=== PATIENT | female | born 1995 | race Caucasian/White ===

== ENCOUNTER 2025-06-22 18:21 | Emergency (ER) | payer MEDICAID, SELFPAY ==
[2025-06-22 18:26] VITALS: BP 122/80; PULSE 87; RESP 18; TEMP 36.8; O2SAT 99
[2025-06-22 18:27] VITALS: BMI 33.8
[2025-06-22 18:33] VITALS: PULSE 98; RESP 16; O2SAT 99
--- NOTE | 2025-06-22 19:37 | XR_ITS ---
Examination: CT brain head without contrast. 2-D sagittal coronal reconstructions Date and time of exam: June 22, 2025, 2021 hours INDICATION: Headache dizziness today CTDI: vol (mGy): 49.9 DLP: (mGycm): 975 Technique: Multiple CT axial sections of the brain have been obtained, 5 mm slice thickness. Contrast has not been administered. 2-D sagittal, coronal reconstructions have been obtained Low dose protocols were performed. One or more of the following dose reduction techniques were used; automated exposure control, adjustment of the mA and/or KV according to patient size, use of iterative reconstruction technique. Findings: No significant ventricular enlargement. Intra-axial or extra-axial hemorrhage density is not seen. No mass effect or midline shift Basal cisterns are not remarkable. Fourth ventricle is midline. Cranial vault intact. Impression: Negative for acute hemorrhage, mass effect or midline shift Advise clinical correlation and follow-up accordingly
--- NOTE | 2025-06-22 19:40 | EKG_ITS ---
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
--- NOTE | 2025-06-22 20:16 | EDNOTE_ITS ---
ED Syncope RME/HPI General Chief Complaint: Syncope / Near Syncope Stated Complaint: SYNCOPE Time Seen by Provider: 06/22/25 19:34 Arrival date/time: 06/22/25 18:21 RME / HPI RME / HPI narrative: 29-year-old healthy female presents to the ER for an episode of feeling warm and lightheaded while cooking in the kitchen about 2 hours prior to arrival and she subsequently sat down and lost consciousness. This was witnessed by her boyfriend who states that she was shaking for about 30 seconds. Patient came to right after and felt normal. Denies chest pain, shortness of breath, nausea vomiting, fever, head injury, LOC, tongue biting, urinary incontinence. Related Data Previous Rx's ?Medication ?Instructions ?Recorded ibuprofen 600 mg tablet 600 mg PO Q8H PRN pain #30 t abs 06/22/21 labetalol 100 mg tablet 100 mg PO BID #60 tabs 06/22 oxycodone-acetaminophen 5 mg-325 1 tab PO Q8H PRN pain #20 tabs 06/22/21 mg tablet (Percocet) nifedipine 30 mg tablet,extended 30 mg PO QDAY #30 tab s 06/23/21 release 24 hr (Procardia XL) Allergies Allergy/AdvReac Type Severity Reaction Status Date / Time No Known Allergies Allergy Verified 02/07/21 16:18 Course Quality Measures none Orders Category Date Time Status EKG (ED ONLY) *Do not use* NOW Care 06/22/25 19:40 Completed Orthostatic Vitals NOW Care 06/22/25 20:[address] head/brain wo con Stat Exams 06/22/25 19:37 Completed EKG (ED Only) Stat Exams 06/22/25 19:40 Draft CBC Stat Lab 06/22/25 20:39 Completed CMP [Comprehensive Metabolic Panel] Stat Lab 06/22/25 20:39 Completed Drug Screen,Urine Stat Lab 06/22/25 20:24 Completed HCG,Qualitative Serum Stat Lab 06/22/25 20:39 Completed Troponin I Stat Lab 06/22/25 20:39 Completed UA, C/S IF [Urinalysis, C/S if Indicated] Stat Lab 06/22/25 20:24 Completed Sodium Chloride 0.9% 1000 ml [Ns] 1,000 ml Med 06/22/25 20:42 Discontinued IV 999 mls/hr Vital Signs Vital signs: Vital Signs Temperature 98.3 F 06/22/25 18:26 Pulse Rate 87 06/22/25 18:26 Respiratory Rate 18 06/22/25 18:26 Blood Pressure 122/80 06/22/25 18:26 Pulse Oximetry (%) 99 06/22/25 18:26 Oxygen Delivery Method Room Air 06/22/25 18:26 Syncope MDM Narrative MDM Narrative:: MDM Suspect: near syncope vs seizure Non-cardiovascular causes: Reflex mechanisms (vasovagal, vasodepressor/neurocardiogenic syncope), situational (micturition, deglutition, cough). Vs Psychogenic causes: Anxiety, panic disorder, hysterical/functional (cannot be excluded). Vs Orthostatic hypotension: Considered (dysautonomias, fluid depletion, illness, bedrest, deconditioning). Doubt significant orthostasis based on HPI and exam, though mild fluid depletion cannot be ruled out ? patient is safe for oral hydration. Low suspicion for below: Seizure: Undiagnosed seizure considered but doubted given lack of seizure history and absence of other seizure symptoms (tongue bite, postictal state, tonic-clonic activity). Drug-induced: Considered (alcohol, illicit drugs, prescribed medications), but doubted given negative history and presentation. Cardiovascular causes: Arrhythmic and nonarrhythmic etiologies (structural cardiac disease, valvular disease, ischemia) considered. Doubt due to lack of risk factors, normal exam, reassuring EKG, and overall benign clinical presentation. Course/Disposition: This patient is clinically well appearing. [place] syncope score is low risk. Careful history, physical exam, and ED testing show no signs of a serious cause of lightheadedness/syncope such as arrhythmia, anemia, serious neurologic, or structural cardiovascular disease. 1st time seizure is possible however I doubt this diagnosis. Admission was considered; however, given the negative evaluation in the ED and stable presentation, admission is unlikely to provide additional benefit or identify a serious etiology at this time. The patient is safe for home observation, oral hydration encouraged, and strict ER return precautions were discussed. Close follow-up with primary physician is recommended. The patient has been observed for an appropriate period without recurrent seizure activity and is back to baseline mental status which she has been through out entire ER stay, despite my low suspicion for true seizure. Risk in the acute term of recurrent seizure is felt to be low. The patient has been instructed that driving is not presently allowed and that other high risk activities, including swimming, climbing heights, etc., are to be avoided until further instructed by their PMD or Neurologist. The patient has been instructed on warning signs for which immediate return evaluation is needed. Patient data External records reviewed:: None Clinical information provided by:: patient Social determinants that could affect healthcare access:: none Patient has the following chronic illnesses:: None How is presenting disease/condition affected by chronic disease/condition?: no chronic disease Evaluation data The following diagnostics were reviewed and interpreted by me:: lab results Lab and/or radiology exams considered but not ordered:: Labs and radiology considered, but not ordered as they were not clinically indicated at this time. Interpretation Summary: CBC with mild leukocytosis with a white blood cell count of 14, hemoglobin mildly low at 11.1 consistent with anemia platelets within normal limits CMP unremarkable without severe metabolic or electrolyte abnormality, troponin undetectable Urine with 4 RBCs and 10 squamous cells as well as amorphous crystals without bacteria doubt UTI concern for contamination Drug screen positive for cannabis EKG 67 normal sinus rhythm with an incomplete right bundle branch block, nonspecific ST abnormality noted in lead III which is isolated. No preexcitation syndrome. QTc 420. No ST elevation or T wave inversions. CT brain without acute intracranial abnormality Medications / Prescriptions Medications or Prescriptions considered but not ordered:: I considered prescription management (both outpatient prescriptions AND drug treatment in the ER) and decided that this was necessary and was prescribed as charted. Medication administrations:: Medication Administration History Discontinued Medications Sodium Chloride (Ns) 1,000 mls @ 999 mls/hr IV .Q1H1M ONE Stop: 06/22/25 21:42 Last Admin: 06/22/25 21:05 Dose: 999 mls/hr Documented By: APRIL As noted Consultations Consultation(s) initiated? (list below): No Diagnosis Syncope Differential Diagnosis: syncope due to orthostatic hypotension and vasovagal syncope Most likely diagnosis given after review of the tests above:: vasovagal syncope Admission Indicated Admission indicated?: not indicated Admission Request Was there a request for admission?: No Disposition Plan Disposition Plan: Discharge Discharge Attestation Discharge Attestation: The patient and all family members were given an opportunity to ask questions and understood the discharge instructions. Discharge instructions specifically effects, indications for sooner follow up or return to the emergency department, and the expected course of current diagnosis. Patient condition: Stable Discharge Plan Plan Patient Disposition: HOME (Self Care) Prescriptions/Referrals Prescriptions/Med Rec: No Action ibuprofen 600 mg tablet 600 mg PO Q8H PRN (Reason: pain) Qty: 30 0RF oxycodone-acetaminophen [Percocet] 5-325 mg tablet 1 tab PO Q8H MDD 15 PRN (Reason: pain) Qty: 20 0RF labetalol 100 mg tablet 100 mg PO BID Qty: 60 0RF nifedipine [Procardia XL] 30 mg tablet extended release 24hr 30 mg PO QDAY Qty: 30 0RF Referrals: Joel Villafuerte FNP [Primary Care Provider] - In 1 week Problem List Clinical Impression: Syncope Impression comment: Can not exclude seizure, however dx is likely vasovagal syncope Patient/Caregiver Discharge Instructions Other Activity Instructions:: Driving is not presently allowed and that other high risk activities, including swimming, climbing heights, etc., are to be avoided until further instructed by their PMD or Neurologist Education Materials: Causes of Syncope, ED Seizure New Onset Unk Cause Ch Additional Instructions: Follow up with your primary medical doctor within 24 hours. Return to the Emergency Room immediately for any new, worsening, continuing symptoms or any concerns at all. Return to the Emergency Room within 24 hours if you are unable to follow up with your primary medical doctor within 24 hours. Follow-up with a neurologist this week as well. Print Language: Upper Sorbian Stand Alone Forms: Rossana Award Info., Patient Portal Info Letter BARB/RAMOS Supervising Physician BARB/RAMOS Supervising Physician: Dr. Brunson
[2025-06-22 20:42] LABS: Collection Type, Urine Voided
[2025-06-22 20:47] LABS: Basophils # (Auto) 0.0 Thou/mm3 (0.0-0.2); Basophils % (Auto) 0 % (0-2.5); Eosinophils # (Auto) 0.1 Thou/mm3 (0.0-0.5); Eosinophils % (Auto) 1 % (0-10); Hematocrit 32.1 % (36.0-46.0); Hemoglobin 11.1 g/dL (12.0-16.0); Immature Granulocytes Auto 0.14 Thou/mm3 (0.00-0.00); Lymphocytes # (Auto) 2.1 Thou/mm3 (1.0-4.8); Lymphocytes % (Auto) 15 % (10-50); Mean Corpuscular HGB Conc 34.6 g/dl (31.0-37.0); Mean Corpuscular Hemoglobin 30.4 pg (25.0-35.0); Mean Corpuscular Volume 88 fL (80-100); Monocytes # (Auto) 0.7 Thou/mm3 (0.0-0.8); Monocytes % (Auto) 5 % (0-12); Neutrophils # (Auto) 11.0 Thou/mm3 (1.8-7.7); Neutrophils % (Auto) 78 % (37-80); Nucleated Red Blood Cell # 0.00 Thou/mm3 (0.00-0.00); Nucleated Red Blood Cell % 0 /100 WBC (0); Platelet Count 358 Thou/mm3 (140-440); RDW Standard Deviation 40.0 fL (36.4-46.3); Red Blood Count 3.65 Miln/mm3 (4.00-5.20); White Blood Count 14.0 Thou/mm3 (3.6-11.0)
[2025-06-22 20:57] LABS: Amphetamine/Methamp Scrn,U Negative (Negative); Barbiturate Screen,Urine Negative (Negative); Benzodiazepines Screen,Urine Negative (Negative); Benzoylecgonine Screen, Ur Negative (Negative); Fentanyl Screen,Urine Negative (Negative); Opiate Screen,Urine Negative (Negative); THC Screen,Urine Positive (Negative)
[2025-06-22 21:01] LABS: HCG,Qualitative Serum Positive
[2025-06-22 21:04] LABS: Alanine Aminotransferase 7 U/L (10-49); Albumin, Serum 4.4 gm/dL (3.5-5.0); Albumin/Globulin Ratio 1.5 (1.2-2.2); Alkaline Phosphatase 56 U/L (46-116); Anion Gap 12 (7-16); Aspartate Amino Transferase 11 U/L (0-34); BUN/Creatinine Ratio 8 Ratio (12-20); Bilirubin,Total 0.3 mg/dL (0.3-1.2); Blood Urea Nitrogen < 5 mg/dL (9-23); Calcium 9.6 mg/dL (8.3-10.6); Calcium (Corrected) 9.6 mg/dL (8.5-10.1); Carbon Dioxide 23.4 mMol/L (20.0-31.0); Chloride 105 mMol/L (98-107); Creatinine (Component) 0.6 mg/dL (0.6-1.3); Estimated Creatinine Clearance 136.5 mL/min (>60); Globulin 2.9 gm/dL (2.3-3.5); Glucose 90 mg/dL (74-106); Osmolality,Calculated 276 (275-295); Potassium 3.7 mMol/L (3.4-5.1); Sodium 140 mMol/L (136-145); Total Protein 7.3 gm/dL (5.7-8.2); Troponin I < 0.002 ng/mL (0.0-0.045); eGFR > 60 See Note
[2025-06-22] MEDS: SODIUM CHLORIDE 0.9% 1000 ML 1,000 ML 999 ML IV (21:05)
[2025-06-22 21:17] LABS: Amorphous Crystals,Urine Present (Absent); Bacteria,Urine Rare; Bilirubin,Urine Negative (Negative); Blood,Urine Negative (Negative); Clarity,Urine Turbid (Clear/Hazy); Color,Urine Lt-Yellow (Lt Yel-Yel); Culture Indicated,Urine Not Indicated; Glucose, Urine Negative (Negative); Ketones,Urine Negative (Negative); Leukocyte Esterase,Urine Negative (Negative); Nitrite,Urine Negative (Negative); PH,Urine 6.0 (5.0-7.0); Protein,Urine Negative (Neg - Trace); RBC,Urine 4 /hpf (0-3); Specific Gravity,Urine 1.017 (1.001-1.035); Squamous Epithelial Cell,Urine 10 /hpf (0-5); Urobilinogen,Urine Negative mg/dL (0.0-1.0); WBC,Urine 1 /hpf (0-5)
[2025-06-22 23:10] VITALS: BP 125/67; PULSE 78; RESP 18; TEMP 36.7; O2SAT 98
== END 2025-06-22 23:12 | disposition home or self-care (01) ==
PROVIDERS: Physician Assistant; Emergency Provider Emergency Medicine
DX: I95.1 Orthostatic hypotension (principal); I45.10 Unspecified right bundle-branch block; R56.9 Unspecified convulsions
CPT/HCPCS: 36415; 70450; 80053; 80307; 81001; 84484; 84703; 85025; 93005; 99283; J7030

== ENCOUNTER 2025-07-21 09:20 | Emergency (ER) | payer MEDICAID, SELFPAY ==
[2025-07-21 09:20] VITALS: BMI 32.9
[2025-07-21 09:32] VITALS: BP 145/87; PULSE 75; RESP 18; TEMP 36.9; O2SAT 100
--- NOTE | 2025-07-21 09:40 | XR_ITS ---
Examination: Complete OB ultrasound greater than 14 weeks Date and time of exam: July 21, 2025, 1108 hours INDICATIONS: Vaginal bleeding today and epigastric pain Findings: Viable intrauterine single fetus with single amniotic sac presentation transverse, head maternal left Cardiac motion 153 bpm Placenta low lying posterior grade 1 Umbilical cord insertion 3 vessel seen Amniotic fluid index 11.9 cm Cervix 3.2 cm Ovaries obscured by bowel gas. Composite estimated gestational age based on BPD, head circumference, abdominal circumference, femur length is 17 weeks 2 days Estimated weight 184 g. Survey of intracranial anatomy, spinal anatomy, abdominal anatomy, four-chamber heart performed with no abnormalities identified. Impression: Viable intrauterine gestation in transverse presentation.
[2025-07-21 09:54] LABS: Basophils # (Auto) 0.1 Thou/mm3 (0.0-0.2); Basophils % (Auto) 0 % (0-2.5); Eosinophils # (Auto) 0.2 Thou/mm3 (0.0-0.5); Eosinophils % (Auto) 1 % (0-10); Hematocrit 31.9 % (36.0-46.0); Hemoglobin 11.0 g/dL (12.0-16.0); Immature Granulocytes Auto 0.24 Thou/mm3 (0.00-0.00); Lymphocytes # (Auto) 2.8 Thou/mm3 (1.0-4.8); Lymphocytes % (Auto) 21 % (10-50); Mean Corpuscular HGB Conc 34.5 g/dl (31.0-37.0); Mean Corpuscular Hemoglobin 30.7 pg (25.0-35.0); Mean Corpuscular Volume 89 fL (80-100); Monocytes # (Auto) 0.6 Thou/mm3 (0.0-0.8); Monocytes % (Auto) 5 % (0-12); Neutrophils # (Auto) 9.7 Thou/mm3 (1.8-7.7); Neutrophils % (Auto) 71 % (37-80); Nucleated Red Blood Cell # 0.00 Thou/mm3 (0.00-0.00); Nucleated Red Blood Cell % 0 /100 WBC (0); Platelet Count 315 Thou/mm3 (140-440); RDW Standard Deviation 42.4 fL (36.4-46.3); Red Blood Count 3.58 Miln/mm3 (4.00-5.20); White Blood Count 13.6 Thou/mm3 (3.6-11.0)
--- NOTE | 2025-07-21 10:07 | PD.EDRME ---
Rapid Medical Screening Exam RME Arrival date/time: 07/21/25 09:20 30-year-old female unknown gestation presents to the emergency department today stating she is having abdominal cramping and vaginal spotting today Chief Complaint: Vaginal Bleeding Time Seen by Provider: 07/21/25 09:23 Vital signs: Vital Signs Temperature 98.4 F 07/21/25 09:32 Pulse Rate 75 07/21/25 09:32 Respiratory Rate 18 07/21/25 09:32 Blood Pressure 145/87 H 07/21/25 09:32 Pulse Oximetry (%) 100 07/21/25 09:32 Oxygen Delivery Method Room Air 07/21/25 09:32 Vital signs reviewed by provider: Yes Exam: On exam patient well-appearing does not appear ill or toxic Clinical Impression: Lab work and imaging ordered
[2025-07-21 10:37] LABS: Alanine Aminotransferase 8 U/L (10-49); Albumin, Serum 4.1 gm/dL (3.5-5.0); Albumin/Globulin Ratio 1.5 (1.2-2.2); Alkaline Phosphatase 74 U/L (46-116); Anion Gap 10 (7-16); Aspartate Amino Transferase 12 U/L (0-34); BUN/Creatinine Ratio 10 Ratio (12-20); Bilirubin,Total 0.3 mg/dL (0.3-1.2); Blood Urea Nitrogen < 5 mg/dL (9-23); Calcium 9.7 mg/dL (8.3-10.6); Calcium (Corrected) 9.7 mg/dL (8.5-10.1); Carbon Dioxide 24.3 mMol/L (20.0-31.0); Chloride 105 mMol/L (98-107); Creatinine (Component) 0.5 mg/dL (0.6-1.3); Estimated Creatinine Clearance 166.2 mL/min (>60); Globulin 2.8 gm/dL (2.3-3.5); Glucose 121 mg/dL (74-106); Lipase 28 U/L (12-53); Osmolality,Calculated 275 (275-295); Potassium 3.7 mMol/L (3.4-5.1); Sodium 139 mMol/L (136-145); Total Protein 6.9 gm/dL (5.7-8.2); eGFR > 60 See Note
[2025-07-21 10:53] LABS: Beta HCG,Quantitative 28493 mIU/mL (<5.0)
[2025-07-21 12:01] LABS: Collection Type, Urine Clean Catch
[2025-07-21 12:13] LABS: Bilirubin,Urine Negative (Negative); Blood,Urine Negative (Negative); Clarity,Urine Clear (Clear/Hazy); Color,Urine Colorless (Lt Yel-Yel); Glucose, Urine Negative (Negative); Ketones,Urine Negative (Negative); Leukocyte Esterase,Urine Negative (Negative); Nitrite,Urine Negative (Negative); PH,Urine 7.0 (5.0-7.0); Protein,Urine Negative (Neg - Trace); RBC,Urine < 1 /hpf (0-3); Specific Gravity,Urine 1.005 (1.001-1.035); Squamous Epithelial Cell,Urine 2 /hpf (0-5); Urobilinogen,Urine Negative mg/dL (0.0-1.0); WBC,Urine 2 /hpf (0-5)
--- NOTE | 2025-09-01 06:43 | PD.EDVAGBL ---
ED OB Contraction Preg RMI/HPI General Chief complaint: Vaginal Bleeding Stated complaint: VAGINAL SPOTTING WITH BILAT. UPPER ABD PAIN; +HCG Time Seen by Provider: 07/21/25 09:23 Arrival date/time: 07/21/25 09:20 30-year-old female who reports she is approximately 4 months presents with concerns for pelvic cramping and vaginal spotting patient reports no fever nausea vomiting no dysuria or polyuria no back pain Limitations: no limitations RME / HPI RME / HPI Narrative: 07/21/25 09:20 30-year-old female unknown gestation presents to the emergency department today stating she is having abdominal cramping and vaginal spotting today Exam: On exam patient well-appearing does not appear ill or toxic Impression: Lab work and imaging ordered Related Data Previous Rx's ?Medication ?Instructions ?Recorded ibuprofen 600 mg tablet 600 mg PO Q8H PRN pain #30 tabs 06/22/21 labetalol 100 mg tablet 100 mg PO BID #60 tabs 06/22/21 oxycodone-acetaminophen 5 mg-325 1 tab PO Q8H PRN pain #20 tabs 06/22/21 mg tablet (Percocet) nifedipine 30 mg tablet,extended 30 mg PO QDAY #30 tabs 06/23/21 release 24 hr (Procardia XL) Allergies Allergy/AdvReac Type Severity Reaction Status Date / Time No Known Allergies Allergy Verified 07/21/25 09:23 Review of Systems Review of Systems Systems Reviewed: All systems reviewed, normal except as documented Constitutional Constitutional: Reports system reviewed and no additional complaints, except as documented, Denies fever(s) and Denies headache(s) Eyes Eyes: Reports system reviewed and no additional complaints, except as documented and Denies blurry vision ENT Ears, Nose, Mouth, and Throat: Reports system reviewed and no additional complaints, except as documented, Denies headache(s), Denies nasal congestion and Denies nasal discharge Cardiovascular Cardiovascular: Reports system reviewed and no additional complaints, except as documented, Denies chest pain and Denies dyspnea Respiratory Respiratory: Reports system reviewed and no additional complaints, except as documented, Denies chest congestion, Denies cough and Denies dyspnea Gastrointestinal Gastrointestinal: Reports system reviewed and no additional complaints, except as documented and Denies abdominal pain Genitourinary Genitourinary: Reports system reviewed and no additional complaints, except as documented and Reports abnormal vaginal bleeding Integumentary/Breasts Skin/Breast: Reports system reviewed and no additional complaints, except as documented and Denies rash Neurologic Neurologic: Reports system reviewed and no additional complaints, except as documented, Reports as per HPI and Denies headache(s) Past Medical History Past Medical History NEUROLOGIC: Negative Neurological Disorders or Seizures CARDIAC: Negative Cardiac Disorders or Congestive Heart Failure RESPIRATORY: Negative Chronic Obstructive Pulmonary Disease (COPD) GASTROINTESTINAL: Negative Gastrointestinal Disorders, Hepatitis or Colorectal Cancer GENITOURINARY: Negative Genitourinary Disorders, Renal Disease or Prostate Cancer REPRODUCTIVE: Negative Breast Cancer, Pelvic Inflammatory Disease or Testicular Cancer MUSCULOSKELETAL: Negative Musculoskeletal Disorders or Bone Cancer ENDOCRINE: Negative Endocrine Disorders, Diabetes Mellitus Type 1 or Diabetes Mellitus Type 2 HEMATOLOGIC: Negative Blood Disorders OTHER HISTORY: Negative Hospitalization, Autoimmune Disease, Down Syndrome, Developmental Delay, Shingles, Falls, Blood Transfusions, Blood Transfusion Reaction, Anesthesia Reactions, Organ Transplant, Chemotherapy, Radiation Therapy, Hyperbaric Therapy, MRSA, VRSA, Vancomycin-Resistant Enterococci, Human Immunodeficiency Virus (HIV), Chicken Pox, Measles, Mumps, Rubella (Faroese Measles), Pertussis, Clostridium Difficile, Cancer, Breast Cancer, Cervical Cancer, Colorectal Cancer, Lung Cancer, Ovarian Cancer, Prostate Cancer or Testicular Cancer Family History FAMILY HISTORY: Positive Family Cancer (Great grandmother thyroid cancer, mother cervical pre cancer cells.); Negative Family Psychiatric Problems, Family Respiratory Disorders, Family Cardiac Disorders, Family Gastrointestinal Problems, Family Surgery or Family Anesthesia Reaction Surgical History SURGICAL: Negative Cardiac Surgery, Endocrine Surgery, Thyroidectomy, Ear Surgery, Abdominal Surgery, Nephrectomy, Joint Replacement, Neurologic Surgery, Mastectomy, Vasectomy or Organ Transplant Social History SMOKING STATUS: Never smoker SECOND HAND EXPOSURE: Yes ED Exam General Limitations: Present no limitations General appearance: Present alert and in no apparent distress Head Head exam: Present atraumatic Eye Eye exam: Present normal appearance, PERRL and EOMI ENT ENT exam: Present normal exam, normal oropharynx and mucous membranes moist Neck Neck exam: Present normal inspection, full ROM and trachea midline Chest Chest inspection: Present normal inspection and symmetric chest wall rise Respiratory Respiratory exam: Present normal lung sounds bilaterally Cardiovascular Cardiovascular exam: Present regular rate, normal rhythm and normal heart sounds Abdominal Exam Abdominal exam: Present soft and normal bowel sounds Extremities Exam Extremities exam: Present normal inspection and full ROM Back Exam Back exam: Present normal inspection and full ROM Neurological Exam Neurological exam: Present alert, oriented X3 and CN II-XII intact Psychiatric Psychiatric exam: Present normal affect and normal mood Skin Skin exam: Present warm, dry, intact and normal color Course Quality Measures none Orders Category Date Time Status US OB >= 14 weeks Fetus Stat Exams 07/21/25 09:40 Completed ABO/RH Type Stat Lab 07/21/25 09:45 Completed Beta HCG,Quantitative Stat Lab 07/21/25 09:45 Completed CBC Stat Lab 07/21/25 09:45 Completed Comprehensive Metabolic Panel Stat Lab 07/21/25 09:45 Completed Lipase Stat Lab 07/21/25 09:45 Completed UA [Urinalysis] Stat Lab 07/21/25 11:30 Completed Urine Culture Stat Lab 07/21/25 11:30 Completed Vital Signs Vital signs: Vital Signs Temperature 98.4 F 07/21/25 09:32 Pulse Rate 75 07/21/25 09:32 Respiratory Rate 18 07/21/25 09:32 Blood Pressure 145/87 H 07/21/25 09:32 Pulse Oximetry (%) 100 07/21/25 09:32 Oxygen Delivery Method Room Air 07/21/25 09:32 O2 saturation 100% room air within normal limits Vaginal Bleeding MDM Narrative MDM Narrative: 30-year-old female who reports she is approximately 4 months presents with concerns for pelvic cramping and vaginal spotting patient reports no fever nausea vomiting no dysuria or polyuria no back pain Lab work imaging obtained no acute emergent findings noted patient appears a viable Patient directed to follow-up with [facility] in next 24 to 48 hours for worsening symptoms or concerns return immediately Time of discharge patient is no active bleeding Patient data External records reviewed:: [facility] previous records Clinical information provided by:: patient Social determinants that could affect healthcare access:: none Patient has the following chronic illnesses:: See history How is presenting disease/condition affected by chronic disease/condition?: uneffected by Evaluation data The following diagnostics were reviewed and interpreted by me:: lab results and radiology exam(s) Lab and/or radiology exams considered but not ordered:: Labs radiology obtained Interpretation Summary: Reviewed by me Medications / Prescriptions Medications or Prescriptions considered but not ordered:: No med Medication administrations:: No meds Consultations Consultation(s) initiated? (list below): No Diagnosis Vaginal Bleeding Differential Diagnosis: missed and threatened Most likely diagnosis given after review of the tests above:: Bleeding during Admission Indicated Admission indicated?: not indicated Admission Request Was there a request for admission?: No Disposition Plan Disposition Plan: Discharge Discharge Attestation Discharge Attestation: The patient and all family members were given an opportunity to ask questions and understood the discharge instructions. Discharge instructions specifically effects, indications for sooner follow up or return to the emergency department, and the expected course of current diagnosis. Patient condition: Stable Discharge Plan Plan Patient Disposition: HOME (Self Care) Discharge Disposition comment: Stable Prescriptions/Referrals Prescriptions/Med Rec: No Action ibuprofen 600 mg tablet 600 mg PO Q8H PRN (Reason: pain) Qty: 30 0RF oxycodone-acetaminophen [Percocet] 5-325 mg tablet 1 tab PO Q8H MDD 15 PRN (Reason: pain) Qty: 20 0RF labetalol 100 mg tablet 100 mg PO BID Qty: 60 0RF nifedipine [Procardia XL] 30 mg tablet extended release 24hr 30 mg PO QDAY Qty: 30 0RF Referrals: Joel Villafuerte FNP [Primary Care Provider] - 07/22/25 Problem List Clinical Impression: Vaginal bleeding during Patient/Caregiver Discharge Instructions Education Materials: Bleeding During Early Additional Instructions: Please follow up with your primary care doctor in the next 24-48hrs for any worsening symptoms return here immediately Print Language: Austrian Stand Alone Forms: Rossana Award Info., Patient Portal Info Letter BARB/RAMOS Supervising Physician BARB/RAMOS Supervising Physician: Dr. ghotra
== END 2025-07-21 13:32 | disposition home or self-care (01) ==
PROVIDERS: Nurse Practitioner Primary Care; Emergency Provider Family Medicine
DX: O20.9 Hemorrhage in early pregnancy, unspecified (principal); Z3A.00 Weeks of gestation of pregnancy not specified
CPT/HCPCS: 36415; 76805; 80053; 81001; 83690; 84702; 85025; 86900; 86901; 87086; 99283